=== PATIENT | female | born 1960 | race African-American/Black ===

== ENCOUNTER 2016-08-06 16:55 | Emergency (ER) | payer OTHER ==
[2016-08-06 17:03] VITALS: BP 155/95; PULSE 83; TEMP 98; BMI 34.5
--- NOTE | 2016-08-06 18:43 | PDOC ---
History of Present Illness <Nathalie Neal - Last Filed: 08/06/16 22:51> - General History Source: Patient Exam Limitations: No Limitations <Sadia Gaytan - Last Filed: 08/07/16 00:29> - General Chief Complaint: Blood Pressure Problem Stated Complaint: CHEST PAIN Time Seen by Provider: 08/06/16 17:54 - History of Present Illness Initial Comments: 08/06/16 19:59 The patient is a year 56 old female, with a significant past medical history of hypertension, who presents to the emergency department complaining of chest pain that began today and hour before arriving to the ED. The patient reports the recent passing of her sister, which triggered her crying earlier today. Since her episode of crying she reports chest pain, rib pain in the mid- axillary line bilaterally, and pain in the back of her neck. She describes her chest pain as a hot sensation. She rates her chest pain as 7.5/10. She rates her neck pain as a 9/10. She states that since arriving to the ED her chest pain has decreased. The patient denies any associated diaphoresis, palpitations , or shortness of breath. She denies any nausea vomiting, diarrhea, constipation , fever, chills, cough, headache, or dizziness. Allergies: None reported. Past Surgical History: Appendectomy Social History: Non-smoker. Denies alcohol or drug use. PCP: Dr. Everett King (Sadia Gaytan) Past History - Past Medical History HTN: Yes - Surgical History Appendectomy: Yes - Psycho/Social/Smoking Cessation Hx Anxiety: No Suicidal Ideation: No Smoking Status: Yes Smoking History: Current every day smoker Have you smoked in the past 12 months: Yes Number of Cigarettes Smoked Daily: 4 Information on smoking cessation initiated: Yes 'Breaking Loose' booklet given: 08/06/16 Hx Alcohol Use: No Drug/Substance Use Hx: No <Nathalie Neal - Last Filed: 08/06/16 22:51> <Sadia Gaytan - Last Filed: 08/07/16 00:29> - Past Medical History Allergies/Adverse Reactions: Allergies Allergy/AdvReac Type Severity Reaction Status Date / Time No Known Allergies Allergy Verified 08/06/16 16:58 Home Medications: Ambulatory Orders Amlodipine/Valsartan/Hcthiazid [Exforge Hct 10-160-25 mg Tab] 1 tab PO DAILY 12/25 Review of Systems <Nathalie Neal - Last Filed: 08/06/16 22:51> - Review of Systems Able to Perform ROS?: Yes <GaytanSadia barnhart - Last Filed: 08/07/16 00:29> - Review of Systems Comments:: 08/06/16 19:59 CONSTITUTIONAL: Absent: fever, no chills, no fatigue EYES: Absent: visual changes ENT: Absent: ear pain, no sore throat CARDIOVASCULAR: Present: Chest pain Absent: no palpitations RESPIRATORY: Absent: cough, no SOB GI: Absent: abdominal pain, no nausea, no vomiting, no constipation, no diarrhea GENITOURINARY: Absent: dysuria, no frequency, no hematuria MUSKULOSKELETAL: Present: +neck pain, +pain in midaxillary line bilaterally Absent:no arthralgia, no myalgia SKIN: Absent: rash NEURO: Absent: headache (Sadia Gaytan) *Physical Exam <Nathalie Neal - Last Filed: 08/06/16 22:51> <GaytanSadia barnhart - Last Filed: 08/07/16 00:29> - Vital Signs Last Vital Signs Temp Pulse Resp BP Pulse Ox 98.0 F 83 18 155/95 100 08/06/16 16:59 08/06/16 16:59 08/06/16 16:59 08/06/16 16:59 08/06/16 16:59 - Physical Exam Comments: 08/06/16 20:01 GENERAL: Well-appearing, well-nourished. No apparent distress. HEENT: Normocephalic, atraumatic. PERRL, EOM intact. CARDIOVASCULAR: Normal S1, S2. Regular rate and rhythm. PULMONARY: Clear to auscultation bilaterally. ABDOMEN: Soft, non-distended, non-tender. EXTREMITIES: Normal ROM in all four extremities. No gross deformities. Pain in chest/ miaxillary line and neck is non-reproducible to palpation. SKIN: Warm, dry. No rash NEUROLOGICAL: No focal neurological deficits. (Sadia Gaytan) Heart Score/ECG Review <Nathalie Neal - Last Filed: 08/06/16 22:51> <Sadia Gaytan - Last Filed: 08/07/16 00:29> - ECG Impressions Comment:: 08/07/16 00:28 Vent. Rate: 85 bpm IMPRESSION: Normal sinus rhythm. Possible left atrial enlargement. Left axis deviation. Left ventricular hypertrophy. Cannot rule out septal infarct. (Sadia Gaytan) ED Treatment Course - LABORATORY CBC & Chemistry Diagram: 08/06/16 19:00 08/06/16 19:00 <Nathalie Neal - Last Filed: 08/06/16 22:51> - LABORATORY CBC & Chemistry Diagram: 08/06/16 19:00 08/06/16 19:00 <Sadia Gaytan - Last Filed: 08/07/16 00:29> - ADDITIONAL ORDERS Additional order review: Laboratory Results 08/06/16 08/06/16 08/06/16 22:07 19:00 19:00 INR 1.07 Sodium 139 Potassium 4.3 Chloride 105 Carbon Dioxide 28 Anion Gap 6 L BUN 8 D Creatinine 0.7 D Creat Clearance w eGFR > 60 Random Glucose 106 Calcium 8.2 L Magnesium 2.1 Total Bilirubin 0.1 L D AST 19 ALT 31 Alkaline Phosphatase 87 Creatine Kinase 198 H 205 H CK-MB (CK-2) 2.719 Troponin I < 0.02 < 0.02 Total Protein 7.2 Albumin 3.6 08/06/16 19:00 RBC 4.57 MCV 85.2 MCHC 32.7 RDW 15.1 MPV 7.5 Neutrophils % 45.7 D Lymphocytes % 45.1 H D Monocytes % 7.8 Eosinophils % 0.9 D Basophils % 0.5 - RADIOLOGY Radiograph Interpretation: 08/07/16 00:26 EXAM: CXR INTERPRETED BY: Dr. Villa REVIEWED BY: Dr. Neal IMPRESSION: Normal Chest (Sadia Gaytan) - Medications Given in the ED: ED Medications Discontinued Medications Generic Name Dose Route Start Last Admin Trade Name Freq PRN Reason Stop Dose Admin Aspirin 162 mg 08/06/16 18:46 08/06/16 19:39 Asa - PO 08/06/16 18:47 162 mg ONCE ONE Administration Aspirin 162 mg 08/06/16 18:47 08/06/16 19:40 Asa - PO 08/06/16 18:48 Not Given ONCE ONE Medical Decision Making <Nathalie Neal - Last Filed: 08/06/16 22:51> <Sadia Gaytan - Last Filed: 08/07/16 00:29> - Medical Decision Making 08/06/16 20:04 56-year-old female with a history of hypertension who takes exforge presents to the emergency department because she has chest pain. She has been emotionally upset because her sister passed where from cancer about 8 days ago. It is atypical chest pain with pain in her mid axillary areas bilaterally Medical history hypertension Past surgical history is appendectomy in June 2015 EKG is normal sinus rhythm with left atrial enlargement. First cardiac enzyme is negative Impression-anxiety/musculoskeletal pain/atypical chest pain (Nathalie Neal) *DC/Admit/Observation/Transfer <Nathalie Neal - Last Filed: 08/06/16 22:51> <Sadia Gaytan - Last Filed: 08/07/16 00:29> Diagnosis at time of Disposition: Chest pain Qualifiers: Chest pain type: other chest pain Qualified Code(s): R07.89 - Other chest pain - Discharge Dispostion Disposition: HOME Condition at time of disposition: Stable - Referrals Referrals: Everett King MD [Primary Care Provider] - - Patient Instructions Printed Discharge Instructions: DI for Atypical Chest Pain Additional Instructions: please take your blood pressure medication as directly by your physician Follow up with your regular physician
[2016-08-06] MEDS ORDERED: ASPIRIN 81 MG CHEWABLE TABLETS PO ONE ×2 (18:46→18:47)
[2016-08-06] MEDS ORDERED: ASPIRIN 81 MG CHEWABLE TABLETS ONE (19:07)
[2016-08-06 19:17] LABS: BASOPHIL 0.5 % (0-2.0); EOSINOPHIL 0.9 % (0-4.5); MCH 27.9 pg (25.7-33.7); MCHC 32.7 g/dl (32.0-36.0); MEAN CELL VOLUME 85.2 fl (80-96); MEAN PLT VOLUME 7.5 fl (7.5-11.1); NEUTROPHILS 45.7 % (42.8-82.8); PLATELET COUNT 322 K/MM3 (134-434); RDW 15.1 % (11.6-15.6); WHITE BLOOD COUNT 8.7 K/mm3 (4.0-10.0)
[2016-08-06 19:54] LABS: ALBUMIN 3.6 g/dl (3.4-5.0); ANION GAP 6 (8-16); BILIRUBIN,TOTAL 0.1 mg/dL (0.2-1.0); CALCIUM 8.2 mg/dL (8.5-10.1); CO2 28 mmol/L (21-32); CREATININE 0.7 mg/dL (0.55-1.02); GLUCOSE,RANDOM 106 mg/dL (74-106); MAGNESIUM 2.1 mg/dL (1.8-2.4); SGOT/AST 19 U/L (15-37); SGPT/ALT 31 U/L (12-78); TOT PROT 7.2 g/dl (6.4-8.2)
[2016-08-06 19:57] LABS: ALK PHOS 87 U/L (45-117); TROPONIN I < 0.02 ng/ml (0.00-0.05)
[2016-08-06 19:59] LABS: INR 1.07 (0.82-1.09); PROTHROMBIN TIME (PATIENT) 11.8 SEC (9.98-11.88)
[2016-08-06 22:47] LABS: TROPONIN I < 0.02 ng/ml (0.00-0.05)
--- NOTE | 2016-08-08 14:19 | EKG ---
Test Reason : Blood Pressure : / mmHG Vent. Rate : 085 BPM Atrial Rate : 085 BPM P-R Int : 138 ms QRS Dur : 076 ms QT Int : 352 ms P-R-T Axes : 060 -36 034 degrees QTc Int : 418 ms NORMAL SINUS RHYTHM POSSIBLE LEFT ATRIAL ENLARGEMENT LEFT AXIS DEVIATION LEFT VENTRICULAR HYPERTROPHY CANNOT RULE OUT SEPTAL INFARCT , AGE UNDETERMINED ABNORMAL ECG NO PREVIOUS ECGS AVAILABLE Confirmed by HUNTER MCKINNEY MD ([id number]) on 08/08/2016 2:19:30 PM Referred By: Confirmed By:HUNTER MCKINNEY MD
== END 2016-08-06 23:12 | disposition home or self-care (01) ==
LOC: JER 16:55
DX: R07.89 Other chest pain (principal); I10 Essential (primary) hypertension; F17.210 Nicotine dependence, cigarettes, uncomplicated
CPT/HCPCS: 36415; 71010-TC; 80053; 82550; 82553; 83735; 84484; 85025; 85610; 93005; 93010; 99283-25

== ENCOUNTER 2016-08-18 20:07 | Emergency (ER) | payer OTHER ==
[2016-08-18 20:16] VITALS: BP 151/86; PULSE 71; TEMP 98; BMI 34.9
[2016-08-18] MEDS ORDERED: KETOROLAC TROMETHAMINE 60 MG/2 ML VIAL IM ONE (20:55)
[2016-08-18] MEDS ORDERED: KETOROLAC TROMETHAMINE 60 MG/2 ML VIAL ONE (20:57)
--- NOTE | 2016-08-18 21:01 | PDOC ---
History of Present Illness - General Chief Complaint: Injury Stated Complaint: INJURY Time Seen by Provider: 08/18/16 20:24 History Source: Patient Exam Limitations: No Limitations - History of Present Illness Initial Comments: 08/18/16 20:55 56-year-old female presents the ED with complaints of right upper cheek/eye bone pain after a metal fam fell out of the cabinet striking her on her glasses then her face. Patient states has applied ice since then but due to the pain she decided come to the ER. Patient denies visual changes, headache, neck pain, or dizziness presently. Timing/Duration: 1-3 hours Severity: mild Associated Symptoms: reports: denies symptoms Past History - Past Medical History Allergies/Adverse Reactions: Allergies Allergy/AdvReac Type Severity Reaction Status Date / Time No Known Allergies Allergy Verified 08/18/16 20:13 Home Medications: Ambulatory Orders Amlodipine/Valsartan/Hcthiazid [Exforge Hct 10-160-25 mg Tab] 1 tab PO DAILY 12/25 Non-Formulary 0 mg PO ASDIR 08/18/16 HTN: Yes Hypercholesterolemia: Yes - Surgical History Appendectomy: Yes - Psycho/Social/Smoking Cessation Hx Anxiety: No Suicidal Ideation: No Smoking Status: Yes Smoking History: Current every day smoker Have you smoked in the past 12 months: Yes Number of Cigarettes Smoked Daily: 4 Information on smoking cessation initiated: Yes 'Breaking Loose' booklet given: 08/18/16 Hx Alcohol Use: No Drug/Substance Use Hx: No Patient Lives Alone: No Lives with/in: spouse/SO Review of Systems - Review of Systems Able to Perform ROS?: Yes Constitutional: No: Symptoms Reported HEENTM: No: Symptoms Reported, Eye Pain, Blurred Vision, Tearing Respiratory: No: Symptoms reported Cardiac (ROS): No: Symptoms Reported ABD/GI: No: Symptoms Reported Musculoskeletal: No: Symptoms Reported Integumentary: Yes: Lumps (rt upper cheekbone) Neurological: No: Symptoms reported Endocrine: No: Symptoms Reported Hematologic/Lymphatic: No: Symptoms Reported *Physical Exam - Vital Signs Last Vital Signs Temp Pulse Resp BP Pulse Ox 98 F 71 18 151/86 98 08/18/16 20:14 08/18/16 20:14 08/18/16 20:14 08/18/16 20:14 08/18/16 20:14 - Physical Exam General Appearance: Yes: Nourished, Appropriately Dressed. No: Apparent Distress HEENT: positive: EOMI, YAJAIRA. negative: Pale Conjunctivae (no erythema and no edema) Neck: negative: Tender, Supple, Decreased range of motion Integumentary: positive: Other (noted small contusion to right orbital floor without crepitus or deformity. Minimal tenderness to touch) Neurologic: positive: Motor Strength 5/5 (ambulatory) Medical Decision Making - Medical Decision Making 08/18/16 20:59 Patient with injury to right eye after being struck with a metal tin at work. Patient with small contusion not concerning for acute findings. Patient recommended to apply ice and take NSAIDs. Patient given a dose an injection of Toradol *DC/Admit/Observation/Transfer Diagnosis at time of Disposition: Contusion of face Qualifiers: Encounter type: initial encounter Qualified Code(s): S00.83XA - Contusion of other part of head, initial encounter - Discharge Dispostion Disposition: HOME Condition at time of disposition: Good - Referrals Referrals: Everett King MD [Primary Care Provider] - - Patient Instructions Printed Discharge Instructions: DI for Contusion Additional Instructions: Apply ice to the affected area for the next 3 days as much as you can tolerate. May take Tylenol for discomfort or May take Motrin for discomfort.
== END 2016-08-18 21:06 | disposition home or self-care (01) ==
LOC: JERFT 20:07
PROC: 3E0233Z Introduction of Anti-inflammatory into Muscle, Percutaneous Approach (ICD-10-PCS; principal; 2016-08-18)
DX: S00.83XA Contusion of other part of head, initial encounter (principal); I10 Essential (primary) hypertension; E78.00 Pure hypercholesterolemia, unspecified; W20.8XXA Other cause of strike by thrown, projected or falling object, initial encounter; Y93.89 Activity, other specified; Y92.512 Supermarket, store or market as the place of occurrence of the external cause; Y99.0 Civilian activity done for income or pay
CPT/HCPCS: 99281-25

== ENCOUNTER 2016-09-05 17:15 | Emergency (ER) | payer OTHER ==
[2016-09-05] MEDS ORDERED: OXYCODONE/APAP 5/325MG COMBO TABLET PO ONE (17:20)
[2016-09-05 17:23] VITALS: BP 166/91; PULSE 72; TEMP 98; BMI 35.0
[2016-09-05] MEDS ORDERED: OXYCODONE/APAP 5/325MG COMBO TABLET ONE (18:11)
--- NOTE | 2016-09-05 20:53 | PDOC ---
History of Present Illness - General Chief Complaint: Back Pain Stated Complaint: BACK PAIN Time Seen by Provider: 09/05/16 17:32 History Source: Patient Exam Limitations: No Limitations - History of Present Illness Initial Comments: 09/05/16 20:47 CC pain to lower back post jerking movement to lower back x this pm at work; pain radiates down left leg with problems ambulating Occurred: reports: just prior to arrival Severity: reports: severe Pain Location: reports: back Method of Injury: Yes: fall Associated Symptoms (Fall): muscle spasms Past History - Past Medical History Allergies/Adverse Reactions: Allergies Allergy/AdvReac Type Severity Reaction Status Date / Time No Known Allergies Allergy Verified 09/05/16 17:18 Home Medications: Ambulatory Orders Amlodipine/Valsartan/Hcthiazid [Exforge Hct 10-160-25 mg Tab] 1 tab PO DAILY 12/25 Non-Formulary 0 mg PO ASDIR 08/18/16 HTN: Yes Hypercholesterolemia: Yes - Surgical History Appendectomy: Yes - Psycho/Social/Smoking Cessation Hx Anxiety: No Suicidal Ideation: No Smoking Status: Yes Smoking History: Current every day smoker Have you smoked in the past 12 months: Yes Number of Cigarettes Smoked Daily: 4 Information on smoking cessation initiated: Yes 'Breaking Loose' booklet given: 08/18/16 Hx Alcohol Use: No Drug/Substance Use Hx: No Review of Systems - Review of Systems ABD/GI: No: Symptoms Reported : No: Frequency, Incontinence Musculoskeletal: Yes: Back Pain, Muscle Weakness Neurological: No: Numbness, Paresthesia *Physical Exam - Vital Signs Last Vital Signs Temp Pulse Resp BP Pulse Ox 98 F 72 19 166/91 99 09/05/16 17:19 09/05/16 17:19 09/05/16 17:19 09/05/16 17:19 09/05/16 17:19 - Physical Exam General Appearance: Yes: Appropriately Dressed. No: Apparent Distress HEENT: positive: TMs Normal, Pharynx Normal Neck: positive: Supple. negative: Tender, Rigid Respiratory/Chest: positive: Lungs Clear Gastrointestinal/Abdominal: positive: Normal Bowel Sounds. negative: Organomegaly, Pulsatile Mass, Decreased BS, Rebound, Tenderness Rectal Exam: positive: deferred Neurologic: positive: Fully Oriented, Alert, Motor Strength 5/5, Other (no foot drop noted; SLRs= with root pain on left). negative: Sensory Deficit, Babinski Deep Tendon Reflexes: Ankle (L): 1+, Ankle (R): 1+, Knee (L): 1+, Knee (R): 1+ ED Treatment Course - Medications Given in the ED: ED Medications Discontinued Medications Generic Name Dose Route Start Last Admin Trade Name Rosanna PRN Reason Stop Dose Admin Oxycodone/Acetaminophen 2 combo 09/05/16 17:20 09/05/16 18:18 Percocet 5/325 - PO 09/05/16 17:21 2 combo ONCE ONE Administration Medical Decision Making - Medical Decision Making 09/05/16 20:51 ct scan l spine; notes bulging discs, no impingement ; will refer to local MD this week; feeling much better post percpcet ambulating with slight limp now *DC/Admit/Observation/Transfer Diagnosis at time of Disposition: Lower back pain Qualifiers: Chronicity: acute Back pain laterality: unspecified Sciatica presence: with sciatica Sciatica laterality: sciatica of left side Qualified Code(s): M54.42 - Lumbago with sciatica, left side - Discharge Dispostion Disposition: HOME Condition at time of disposition: Stable Admit: No - Patient Instructions Additional Instructions: please see local MD this week and before returning to work; further imaging may be needed; no driving after percocet and flexeril - Post Discharge Activity Work/School Note: Back to Work
== END 2016-09-05 20:58 | disposition home or self-care (01) ==
LOC: JERFT 17:15
DX: M54.42 Lumbago with sciatica, left side (principal); W01.198A Fall on same level from slipping, tripping and stumbling with subsequent striking against other object, initial encounter; Y93.89 Activity, other specified; Y92.512 Supermarket, store or market as the place of occurrence of the external cause; Y99.0 Civilian activity done for income or pay
CPT/HCPCS: 72131-TC; 99281-25

== ENCOUNTER 2017-03-01 23:44 | Emergency (ER) | payer OTHER ==
[2017-03-02 01:25] VITALS: BP 137/77; PULSE 74; TEMP 97.8; BMI 33.6
[2017-03-02] MEDS ORDERED: KETOROLAC TROMETHAMINE 60 MG/2 ML VIAL IM ONE (01:53)
[2017-03-02] MEDS ORDERED: diazePAM 5 MG TABLET PO ONE (01:53)
--- NOTE | 2017-03-02 02:01 | PDOC ---
History of Present Illness - General Chief Complaint: Back Pain Stated Complaint: BACK PAIN Time Seen by Provider: 03/02/17 00:59 - History of Present Illness Initial Comments: 03/02/17 01:49 CHIEF COMPLAINT: lower back pain HISTORY OF PRESENT ILLNESS: 56 yo with hx of HTN presents to ED with pain to R lower back s/p accident at work. Patient reports that she was accidentally struck on the top of her head by "metal garbage bins" at work; she ducked under quickly and snapped back up and since then she has had worsening pain to her R lower back. No recent travel or sick contacts. PAST MEDICAL HISTORY: Denies past medical history FAMILY HISTORY: Denies SOCIAL HISTORY: Lives at home with ____. Occupation: . Denies tobacco, alcohol, illicit drug use. SURGICAL HISTORY: Denies ALLERGIES: No known drug allergies REVIEW OF SYSTEMS General/Constitutional: Denies fever or chills. Denies weakness, weight change. HEENT: Denies change in vision. Denies ear pain or discharge. Denies sore throat. Cardiovascular: Denies chest pain or shortness of breath. Respiratory: Denies cough, wheezing, or hemoptysis. Gastrointestinal: Denies nausea, vomiting, diarrhea or constipation. Denies rectal bleeding. Genitourinary: Denies dysuria, frequency, or change in urination. Musculoskeletal: Denies joint or muscle swelling or pain. Denies neck or back pain. Skin and breasts: Denies rash or easy bruising. Neurologic: Denies headache, vertigo, loss of consciousness, or loss of sensation. Psychiatric: Denies depression or anxiety. Endocrine: Denies increased thirst. Denies abnormal weight change. Hematologic/Lymphatic: Denies anemia, easy bleeding, or history of blood clots. Allergic/Immunologic: Denies hives or skin allergy. Denies latex allergy. PHYSICAL EXAM General Appearance: Well-appearing, appropriately dressed. No apparent distress , no intoxication. HEENT: EOMI, PERRLA, normal ENT inspection, normal voice, TMs normal, pharynx normal. No conjunctival pallor. No photophobia, scleral icterus. Neck: Supple. Trachea midline. No tenderness, rigidity, carotid bruit, stridor , lymphadenopathy, or thyromegaly. Respiratory/Chest: Lungs CTAB. No shortness of breath, chest tenderness, respiratory distress, accessory muscle use. No crackles, rales, rhonchi, stridor , wheezing, dullness Cardiovascular: RRR. S1, S2. No JVD, murmur, bradycardia, tachycardia. Vascular Pulses: Dorsalis-Pedis (R): 2+, Dorsalis-Pedis (L): 2+ Gastrointestinal/Abdominal: Normal bowel sounds. Abdomen soft, non-distended. No tenderness or rebound tenderness. No organomegaly, pulsatile mass, guarding , hernia, hepatomegaly, splenomegaly. Lymphatic: No adenopathy, tenderness. Musculoskeletal/Extremities: Normal inspection. FROM of all extremities, normal capillary refill. Pelvis Stable. No CVA tenderness. No tenderness to extremities, pedal edema, swelling, erythema or deformity. Integumentary: Appropriate color, dry, warm. No cyanosis, erythema, jaundice or rash Neurologic: starch and prosize mixer II-XII intact. Fully oriented, alert. Appropriate mood/affect. Motor strength 5/5. No appreciable EOM palsy, facial droop or sensory deficit. Past History - Past Medical History Allergies/Adverse Reactions: Allergies Allergy/AdvReac Type Severity Reaction Status Date / Time No Known Allergies Allergy Verified 03/02/17 01:25 Home Medications: Ambulatory Orders Amlodipine Besylate [Norvasc -] 10 mg PO DAILY 03/02/17 Diazepam [Valium] 5 mg PO HS PRN #7 tablet MDD 1 03/02/17 Naproxen [Naprosyn -] 500 mg PO BID #14 tablet 03/02/17 HTN: Yes Hypercholesterolemia: Yes - Surgical History Appendectomy: Yes - Psycho/Social/Smoking Cessation Hx Anxiety: No Suicidal Ideation: No Smoking Status: Yes Smoking History: Current every day smoker Have you smoked in the past 12 months: No Number of Cigarettes Smoked Daily: 2 Information on smoking cessation initiated: No 'Breaking Loose' booklet given: 08/18/16 Hx Alcohol Use: No Drug/Substance Use Hx: No *Physical Exam - Vital Signs Last Vital Signs Temp Pulse Resp BP Pulse Ox 97.8 F 74 18 137/77 100 03/02/17 01:20 03/02/17 01:20 03/02/17 01:20 03/02/17 01:20 03/02/17 01:20 *DC/Admit/Observation/Transfer Diagnosis at time of Disposition: Lower back pain Qualifiers: Chronicity: acute Back pain laterality: right Sciatica presence: without sciatica Qualified Code(s): M54.5 - Low back pain - Discharge Dispostion Disposition: HOME Condition at time of disposition: Stable Admit: No - Prescriptions Prescriptions: Naproxen [Naprosyn -] 500 mg PO BID #14 tablet Diazepam [Valium] 5 mg PO HS PRN #7 tablet MDD 1 PRN Reason: Muscle Spasms - Referrals Referrals: Everett King MD [Primary Care Provider] - Deshawn Newton MD [Staff Physician] - - Patient Instructions Printed Discharge Instructions: DI for Low Back Pain Additional Instructions: Please take your medications as prescribed. Do NOT drive or operate machinery or drink alcohol while taking Valium. If your pain persists past 4-5 days, please follow up with orthopedics (referral provided). If you experience any loss of sensation to your legs, any loss of bowel or bladder function, memory loss, persistent vomiting, or any new or worsening symptoms, please return to the ER. - Post Discharge Activity Work/School Note: Back to Work
[2017-03-02] MEDS ORDERED: KETOROLAC TROMETHAMINE 60 MG/2 ML VIAL ONE (02:04)
[2017-03-02] MEDS ORDERED: diazePAM 5 MG TABLET ONE (02:04)
== END 2017-03-02 02:31 | disposition home or self-care (01) ==
LOC: JERFT 23:44
DX: M54.5 Low back pain (principal); W20.8XXA Other cause of strike by thrown, projected or falling object, initial encounter; Y93.89 Activity, other specified; Y92.512 Supermarket, store or market as the place of occurrence of the external cause; Y99.0 Civilian activity done for income or pay; I10 Essential (primary) hypertension; E78.00 Pure hypercholesterolemia, unspecified
CPT/HCPCS: 99282-25

== ENCOUNTER 2017-03-17 17:29 | Emergency (ER) | payer OTHER ==
[2017-03-17 17:43] VITALS: BP 143/74; PULSE 73; TEMP 98.2; BMI 31.8
--- NOTE | 2017-03-17 18:17 | PDOC ---
History of Present Illness <ÁngelNathaliecharisse Castañeda - Last Filed: 03/17/17 21:43> - History of Present Illness Initial Comments: 03/17/17 20:03 The patient is a 56 yo with a significant past medical history of hypertension who presents to emergency department for evaluation of persistent, constant achy headaches since her recent ED visit on 01/29/17. The patient states she has been taking Valium and Aleve for her pain with little relief. She presents today because her headache was severe. She denies visual changes. She denies numbness or tingling. The patients reports being hit on the top of her head a month ago by the metal lid of a garbage can at work. She states her symptoms started at that point and have been constant. She denies chest pain, shortness of breath, and dizziness. She denies fever, chills, nausea, vomit, diarrhea and constipation. She denies dysuria, frequency , urgency and hematuria. Allergies: NKDA PCP - Dr. Everett King <Danica Matta - Last Filed: 03/18/17 00:36> - General Chief Complaint: Headache Stated Complaint: HEADACHES/BACK PAIN Time Seen by Provider: 03/17/17 17:59 Past History - Past Medical History HTN: Yes Hypercholesterolemia: Yes - Surgical History Appendectomy: Yes - Psycho/Social/Smoking Cessation Hx Anxiety: No Suicidal Ideation: No Smoking Status: Yes Smoking History: Never smoked Have you smoked in the past 12 months: No Number of Cigarettes Smoked Daily: 2 Information on smoking cessation initiated: No 'Breaking Loose' booklet given: 08/18/16 Hx Alcohol Use: No Drug/Substance Use Hx: No Substance Use Type: None <ÁngelNathaliecharisse Castañeda - Last Filed: 03/17/17 21:43> <Danica Matta - Last Filed: 03/18/17 00:36> - Past Medical History Allergies/Adverse Reactions: Allergies Allergy/AdvReac Type Severity Reaction Status Date / Time No Known Allergies Allergy Verified 03/17/17 17:38 Home Medications: Ambulatory Orders Amlodipine Besylate [Norvasc -] 10 mg PO DAILY 03/02/17 Ibuprofen [Motrin -] 400 mg PO TID PRN 03/17/17 Review of Systems - Review of Systems Able to Perform ROS?: Yes Comments:: 03/17/17 20:04 CONSTITUTIONAL: Absent: fever, chills, diaphoresis, generalized weakness, malaise, loss of appetite HEENT: Absent: rhinorrhea, nasal congestion, throat pain, throat swelling, difficulty swallowing, mouth swelling, ear pain, eye pain, visual Changes CARDIOVASCULAR: Absent: chest pain, syncope, palpitations, irregular heart rate, lightheadedness , peripheral edema RESPIRATORY: Absent: cough, shortness of breath, dyspnea with exertion, orthopnea, wheezing, stridor, hemoptysis GASTROINTESTINAL: Absent: abdominal pain, abdominal distension, nausea, vomiting, diarrhea, constipation, melena, hematochezia GENITOURINARY: Absent: dysuria, frequency, urgency, hesitancy, hematuria, flank pain, genital pain MUSCULOSKELETAL: Absent: myalgia, arthralgia, joint swelling SKIN: Absent: rash, itching, pallor HEMATOLOGIC/IMMUNOLOGIC: Absent: easy bleeding, easy bruising, lymphadenopathy, frequent infections ENDOCRINE: Absent: unexplained weight gain, unexplained weight loss, heat intolerance, cold intolerance NEUROLOGIC: (+) headache and dizziness. Absent: focal weakness or paresthesias, unsteady gait, seizure, mental status changes, bladder or bowel incontinence PSYCHIATRIC: Absent: anxiety, depression, suicidal or homicidal ideation, hallucinations. <Danica Matta - Last Filed: 03/18/17 00:36> *Physical Exam - Vital Signs Last Vital Signs Temp Pulse Resp BP Pulse Ox 98.2 F 73 18 143/74 100 03/17/17 17:38 03/17/17 17:38 03/17/17 17:38 03/17/17 17:38 03/17/17 17:38 <Nathalie Neal - Last Filed: 03/17/17 21:43> - Vital Signs Last Vital Signs Temp Pulse Resp BP Pulse Ox 98.2 F 73 18 143/74 100 03/17/17 17:38 03/17/17 17:38 03/17/17 17:38 03/17/17 17:38 03/17/17 17:38 - Physical Exam Comments: 03/17/17 20:05 GENERAL: Well developed, well nourished. Awake and alert. No acute distress. HEENT: Normocephalic, atraumatic. PERRLA, EOMI. No conjunctival pallor. Sclera are non- icteric. Moist mucous membranes. Oropharynx is clear. NECK: Supple. Full ROM. No JVD. Carotid pulses 2+ and symmetric, without bruits. No thyromegaly. No lymphadenopathy. CARDIOVASCULAR: Regular rate and rhythm. No murmurs, rubs, or gallops. Distal pulses are 2+ and symmetric. PULMONARY: No evidence of respiratory distress. Lungs clear to auscultation bilaterally. No wheezing, rales or rhonchi. ABDOMINAL: Soft. Non-tender. Non-distended. No rebound or guarding. No organomegaly. Normoactive bowel sounds. MUSCULOSKELETAL Normal range of motion at all joints. No bony deformities or tenderness. No CVA tenderness. EXTREMITIES: No cyanosis. No clubbing. No edema. No calf tenderness. SKIN: Warm and dry. Normal capillary refill. No rashes. No jaundice. NEUROLOGICAL: Alert, awake, appropriate. Cranial nerves 2-12 intact. Normoreflexic in the upper and lower extremities. Normal speech. Toes are down-going bilaterally. Gait is normal without ataxia. PSYCHIATRIC: Cooperative. Good eye contact. Appropriate mood and affect. <Danica Matta - Last Filed: 03/18/17 00:36> Heart Score/ECG Review - ECG Intrepretation Comment:: 03/18/17 00:35 ECG was read by Dr. Neal at 20:00 Impression: Normal sinus rhythm Vent Rate: 63 bpm GA Interval: 158 ms QTc: 421 ms <Danica Matta - Last Filed: 03/18/17 00:36> ED Treatment Course - ADDITIONAL ORDERS Additional order review: Laboratory Results 03/17/17 18:50 POC Glucometer [id number] 03/17/17 18:50 POC Glucometer [id number] - Medications Given in the ED: ED Medications Discontinued Medications Generic Name Dose Route Start Last Admin Trade Name Freq PRN Reason Stop Dose Admin Ibuprofen 600 mg 03/17/17 19:15 03/17/17 19:25 Motrin - PO 03/17/17 19:16 600 mg ONCE ONE Administration <Danica Matta - Last Filed: 03/18/17 00:36> Medical Decision Making - Medical Decision Making 03/17/17 21:30 56-year-old female with headache and mild dizziness NIHSS stroke scale is 0. She has no gross focal neural deficits She has no diplopia, no field cuts on her visual field Fever, no nuchal rigidity, no nausea, vomiting CAT scan of the head is negative. There is no acute infarction, no acute bleed , mass lesion, no hydrocephalus and no sinusitis or skull fracture Impression Headache -if persists ,pt told to followup with Dr Latham <Nathalie Neal - Last Filed: 03/17/17 21:43> - Medical Decision Making 03/17/17 22:12 EXAM: CT HEAD without contrast was read by Jessi Beaver MD at 21:19 EST DATE/TIME: 2017-03-17 20:02:47 REASON FOR EXAM: Severe persistent headache. FINDINGS: Negative unenhanced head CT examination. There is no CT evidence of acute cortical territorial infarction, bleed, mass lesion, mass effect, hydrocephalus or abnormal extra-axial collection.No acute sinusitis or mastoiditis is identified. No acute skull fracture or calvarial lesion is noted. <Danica Matta - Last Filed: 03/18/17 00:36> *DC/Admit/Observation/Transfer <Nathalie Neal - Last Filed: 03/17/17 21:43> - Attestations Scribe Attestion: 03/17/17 20:05 Documentation prepared by Danica Matta, acting as medical insurance claims specialist for Nathalie Neal MD <Danica Matta - Last Filed: 03/18/17 00:36> Diagnosis at time of Disposition: Headache Qualifiers: Headache type: tension-type Headache chronicity pattern: unspecified pattern Intractability: not intractable Qualified Code(s): G44.209 - Tension-type headache, unspecified, not intractable - Discharge Dispostion Disposition: HOME Condition at time of disposition: Stable - Referrals Referrals: Everett King MD [Primary Care Provider] - Cesar Latham MD [Staff Physician] - - Patient Instructions Printed Discharge Instructions: DI for Headache Additional Instructions: please follow up with Dr Latham if your headaches persist Take motrin or Excedrine headache for pain as needed
[2017-03-17] MEDS ORDERED: IBUPROFEN 600 MG TABLET (FP) PO ONE ×2 (19:15→19:27)
--- NOTE | 2017-03-18 17:44 | EKG ---
Test Reason : Blood Pressure : / mmHG Vent. Rate : 063 BPM Atrial Rate : 063 BPM P-R Int : 158 ms QRS Dur : 090 ms QT Int : 412 ms P-R-T Axes : 059 -20 025 degrees QTc Int : 421 ms NORMAL SINUS RHYTHM NORMAL ECG WHEN COMPARED WITH ECG OF 06-AUG-2016 17:04, MINIMAL CRITERIA FOR SEPTAL INFARCT ARE NO LONGER PRESENT CLINICAL CORRELATION IS RECOMMENDED Confirmed by OLGA PARR MD ([id number]) on 03/18/2017 5:43:59 PM Referred By: Confirmed By:OLGA PARR MD
== END 2017-03-17 22:03 | disposition home or self-care (01) ==
LOC: JER 17:29
DX: G44.209 Tension-type headache, unspecified, not intractable (principal); I10 Essential (primary) hypertension; E78.00 Pure hypercholesterolemia, unspecified; Z72.0 Tobacco use
CPT/HCPCS: 70450-TC; 93005; 93010; 99282-25

== ENCOUNTER 2017-07-24 11:24 | Emergency (ER) | payer OTHER ==
[2017-07-24 11:28] VITALS: TEMP 98.7; BMI 33.6
--- NOTE | 2017-07-24 12:14 | PDOC ---
History of Present Illness <Jabari Parra - Last Filed: 07/24/17 15:06> - History of Present Illness Initial Comments: 07/24/17 12:14 Ms. Feng is a 57 yo female w/ pmh of HTN who presents complaining of 1 week of nasal congestions with minor cough and pressure to her sinuses, diarrhea 4 days ago the lasted 1 day and resolved, diarrhea today that she reports is loose stool only, and chest tightness. She reports she thinks she may have gotten food poisoning and that she had subjective fevers and chills last night. She also complains of intermittent nausea without vomiting. The patient denies shortness of breath and dizziness. Denies vomit and constipation. Denies dysuria, frequency, urgency and hematuria. Allergies: NKDA <Warren Colvin - Last Filed: 07/24/17 15:36> - General Chief Complaint: Pain Stated Complaint: CHEST PAIN/DIARRHEA, CHILLS Time Seen by Provider: 07/24/17 11:26 Past History <Jabari Parra - Last Filed: 07/24/17 15:06> - Past Medical History COPD: No HTN: Yes Hypercholesterolemia: Yes - Surgical History Appendectomy: Yes - Suicide/Smoking/Psychosocial Hx Smoking Status: Yes Smoking History: Current every day smoker Have you smoked in the past 12 months: No Number of Cigarettes Smoked Daily: 5 Information on smoking cessation initiated: Yes 'Breaking Loose' booklet given: 07/24/17 Hx Alcohol Use: No Drug/Substance Use Hx: No Substance Use Type: None <Warren Colvin - Last Filed: 07/24/17 15:36> - Past Medical History Allergies/Adverse Reactions: Allergies Allergy/AdvReac Type Severity Reaction Status Date / Time No Known Allergies Allergy Verified 07/24/17 11:28 Home Medications: Ambulatory Orders Amlodipine Besylate [Norvasc -] 10 mg PO DAILY 03/02/17 Ibuprofen [Motrin -] 400 mg PO TID PRN 03/17/17 Review of Systems - Review of Systems Comments:: 07/24/17 13:11 GENERAL/CONSTITUTIONAL: +Subjective fever with chills. No weakness. HEAD, EYES, EARS, NOSE AND THROAT: No change in vision. No ear pain or discharge. No sore throat. CARDIOVASCULAR: +Minor chest tightness without shortness of breath RESPIRATORY: +Minor cough, wheezing, or hemoptysis. GASTROINTESTINAL: Some nausea with 3-4 episodes of diarrhea today. No vomiting or constipation. GENITOURINARY: No dysuria, frequency, or change in urination. MUSCULOSKELETAL: No joint or muscle swelling or pain. No neck or back pain. SKIN: No rash NEUROLOGIC: No headache, vertigo, loss of consciousness, or change in strength/ sensation. ENDOCRINE: No increased thirst. No abnormal weight change HEMATOLOGIC/LYMPHATIC: No anemia, easy bleeding, or history of blood clots. ALLERGIC/IMMUNOLOGIC: No hives or skin allergy. <Warren Colvin - Last Filed: 07/24/17 15:36> *Physical Exam - Vital Signs Last Vital Signs Temp Pulse Resp BP Pulse Ox 98.7 F 74 18 143/80 100 07/24/17 11:26 07/24/17 11:26 07/24/17 11:26 07/24/17 11:26 07/24/17 11:26 <Jabari Parra - Last Filed: 07/24/17 15:06> - Vital Signs Last Vital Signs Temp Pulse Resp BP Pulse Ox 98.7 F 74 18 143/80 100 07/24/17 11:26 07/24/17 11:26 07/24/17 11:26 07/24/17 11:26 07/24/17 11:26 - Physical Exam Comments: 07/24/17 13:13 GENERAL: Awake, alert, and fully oriented, in no acute distress HEAD: No signs of trauma, normocephalic, atraumatic EYES: PERRLA, EOMI, sclera anicteric, conjunctiva clear ENT: Auricles normal inspection, hearing grossly normal, nares patent, oropharynx clear without exudates. Moist mucosa NECK: Normal ROM, supple, no lymphadenopathy, JVD, or masses LUNGS: +Reproducible TTP midline on sternum. No distress, speaks full sentences , clear to auscultation bilaterally HEART: Regular rate and rhythm, normal S1 and S2, no murmurs, rubs or gallops, peripheral pulses normal and equal bilaterally. ABDOMEN: Soft, nontender, normoactive bowel sounds. No guarding, no rebound. No masses EXTREMITIES: Normal inspection, Normal range of motion, no edema. No clubbing or cyanosis. NEUROLOGICAL: Cranial nerves II through XII grossly intact. Normal speech, normal gait, no focal sensorimotor deficits SKIN: Warm, Dry, normal turgor, no rashes or lesions noted. <Warren Colvin - Last Filed: 07/24/17 15:36> ED Treatment Course - LABORATORY CBC & Chemistry Diagram: 07/24/17 12:38 07/24/17 12:38 - ADDITIONAL ORDERS Additional order review: Laboratory Results 07/24/17 07/24/17 12:47 12:38 Sodium 137 Potassium 4.2 Chloride 105 Carbon Dioxide 27 Anion Gap 5 L BUN 8 Creatinine 0.6 Creat Clearance w eGFR > 60 Random Glucose 110 H Calcium 8.2 L Total Bilirubin 0.2 D AST 23 D ALT 46 D Alkaline Phosphatase 93 Creatine Kinase 150 Creatine Kinase Index 1.1 CK-MB (CK-2) 1.797 Troponin I < 0.02 Total Protein 7.0 Albumin 3.3 L Urine Color Yellow Urine Appearance Clear Urine pH 6.0 D Ur Specific Russell 1.019 Urine Protein Negative Urine Glucose (UA) Negative Urine Ketones Negative Urine Blood 2+ H Urine Nitrite Negative Urine Bilirubin Negative Urine Urobilinogen 4.0 e.u/dl H Ur Leukocyte Esterase Negative Urine WBC (Auto) 1 Urine RBC (Auto) 89 Ur Epithelial Cells Few 07/24/17 12:38 RBC 4.58 MCV 85.8 MCHC 31.9 L RDW 15.4 MPV 7.2 L Neutrophils % 49.6 Lymphocytes % 38.9 Monocytes % 9.8 Eosinophils % 1.2 Basophils % 0.5 - Medications Given in the ED: ED Medications Discontinued Medications Generic Name Dose Route Start Last Admin Trade Name Rosanna PRN Reason Stop Dose Admin Famotidine 20 mg in 12 mls @ 144 mls/hr 07/24/17 12:30 07/24/17 12:45 Pepcid 20 Mg/12 Ml Push IVPUSH 07/24/17 12:34 144 mls/hr ONCE ONE Administration Sodium Chloride 1,000 mls @ 1,000 mls/hr 07/24/17 12:24 07/24/17 12:45 Normal Saline - IV 07/24/17 13:23 1,000 mls/hr ASDIR STA Administration Ketorolac Tromethamine 15 mg 07/24/17 13:07 07/24/17 13:15 Toradol Injection - IVPUSH 07/24/17 13:08 15 mg ONCE ONE Administration <Jabari Parra - Last Filed: 07/24/17 15:06> - LABORATORY CBC & Chemistry Diagram: 07/24/17 12:38 07/24/17 12:38 <Warren Colvin - Last Filed: 07/24/17 15:36> Medical Decision Making - Medical Decision Making 07/24/17 15:34 Ms. Feng is a 57 yo female w/ pmh as described who presents w/ URI. Patient noted to have blood in urine - discussed with patient who verbalized understanding and agreement of need to f/u w/ urology. Provided urology f/u information. Discharging to home. <DiegorichmondWarren - Last Filed: 07/24/17 15:36> *DC/Admit/Observation/Transfer <Jabari Parra - Last Filed: 07/24/17 15:06> <Warren Colvin - Last Filed: 07/24/17 15:36> Diagnosis at time of Disposition: URI (upper respiratory infection) Qualifiers: URI type: unspecified URI Qualified Code(s): J06.9 - Acute upper respiratory infection, unspecified - Discharge Dispostion Disposition: HOME - Referrals Referrals: Everett King MD [Primary Care Provider] - Ángel Carrera MD [Staff Physician] - - Patient Instructions Printed Discharge Instructions: DI for Viral Syndrome Additional Instructions: You had blood in your urine today. You need to follow up with a urologist to have this further evaluated, as it may be a sign of cancer. If you experience any chest pain, shortness of breath, or any other concerning symptoms, return to the ER immediately. Otherwise follow up with your primary doctor within 1 week. - Post Discharge Activity
[2017-07-24] MEDS ORDERED: SODIUM CHLORIDE 1,000 ML IV STA (12:24)
[2017-07-24] MEDS ORDERED: FAMOTIDINE IV 20 MG/12 ML VIAL IVPUSH ONE (12:30)
[2017-07-24] MEDS ORDERED: FAMOTIDINE 20 MG/50 ML IVPB 20 MG/50 ML MG IVPB ONE (12:41)
--- NOTE | 2017-07-24 12:42 | EKG ---
Test Reason : Blood Pressure : / mmHG Vent. Rate : 074 BPM Atrial Rate : 074 BPM P-R Int : 140 ms QRS Dur : 080 ms QT Int : 394 ms P-R-T Axes : 067 -28 029 degrees QTc Int : 437 ms NORMAL SINUS RHYTHM NORMAL ECG WHEN COMPARED WITH ECG OF 17-MAR-2017 20:00, NO SIGNIFICANT CHANGE WAS FOUND Confirmed by HUNTER MCKINNEY MD ([id number]) on 07/24/2017 12:42:41 PM Referred By: Confirmed By:HUNTER MCKINNEY MD
[2017-07-24 12:47] LABS: BASO % 0.5 % (0-2.0); EOS % 1.2 % (0-4.5); HEMATOCRIT 39.3 % (32.4-45.2); HEMOGLOBIN 12.5 GM/dL (10.7-15.3); LYMPH % 38.9 % (8-40); MCH 27.4 pg (25.7-33.7); MCHC 31.9 g/dl (32.0-36.0); MEAN CELL VOLUME 85.8 fl (80-96); MEAN PLT VOLUME 7.2 fl (7.5-11.1); MONO % 9.8 % (3.8-10.2); NEUT % 49.6 % (42.8-82.8); PLATELET COUNT 338 K/MM3 (134-434); RBC 4.58 M/mm3 (3.60-5.2); RDW 15.4 % (11.6-15.6); WHITE BLOOD COUNT 7.4 K/mm3 (4.0-10.0)
[2017-07-24 13:05] LABS: URINE APPEARANCE CLEAR; URINE BILIRUBIN NEGATIVE (NEGATIVE); URINE BLOOD 2+ (NEGATIVE); URINE COLOR YELLOW; URINE GLUCOSE (UA) NEGATIVE (NEGATIVE); URINE KETONE NEGATIVE (NEGATIVE); URINE LEUK ESTERASE NEGATIVE (NEGATIVE); URINE NITRITE NEGATIVE (NEGATIVE); URINE PROTEIN NEGATIVE (NEGATIVE); URINE UROBILINOGEN 4.0 E.U/dl mg/dL (0.2-1.0)
[2017-07-24] MEDS ORDERED: KETOROLAC TROMETHAMINE 15 MG/ML VIAL IVPUSH ONE (13:07)
[2017-07-24 13:08] LABS: EPI CELLS FEW /HPF (FEW)
[2017-07-24 13:09] LABS: ALBUMIN 3.3 g/dl (3.4-5.0); ANION GAP 5 (8-16); BLOOD UREA NITROGEN 8 mg/dL (7-18); CALCIUM 8.2 mg/dL (8.5-10.1); CHLORIDE 105 mmol/L (98-107); CO2 27 mmol/L (21-32); GLUCOSE,RANDOM 110 mg/dL (74-106); POTASSIUM 4.2 mmol/L (3.5-5.1); SODIUM 137 mmol/L (136-145)
[2017-07-24] MEDS ORDERED: KETOROLAC TROMETHAMINE 15 MG/ML VIAL ONE (13:13)
[2017-07-24 13:15] LABS: ALK PHOS 93 U/L (45-117); BILIRUBIN,TOTAL 0.2 mg/dL (0.2-1.0); CREATININE 0.6 mg/dL (0.55-1.02); SGOT/AST 23 U/L (15-37); SGPT/ALT 46 U/L (12-78)
--- NOTE | 2017-07-24 13:21 | PDOC ---
Attending Attestation - Resident Resident Name: Warren Colvin - ED Attending Attestation I have performed the following: I have examined & evaluated the patient, The case was reviewed & discussed with the resident, I agree w/resident's findings & plan, Exceptions are as noted - HPI HPI: 07/24/17 13:17 "The patient is a 57 year old female, with a significant past medical history of hypertension, who presents to the emergency department with one week of nasal congestion, dry cough, and generalized body aches. Endorses chest tightness associated only with coughing. Denies SOB. Reports some diarrhea 2 days ago without N/V. Denies abdominal pain. Denies dysuria. PCP: Dr. Everett King " - Physicial Exam PE: 07/24/17 13:18 "GENERAL: Awake, alert, and fully oriented, in no acute distress HEAD: No signs of trauma EYES: PERRLA, EOMI, sclera anicteric, conjunctiva clear ENT: Auricles normal inspection, hearing grossly normal, nares patent, oropharynx clear without exudates. Moist mucosa NECK: Nontender, no stepoffs, Normal ROM, supple, no lymphadenopathy, JVD, or masses LUNGS: Breath sounds equal, clear to auscultation bilaterally. No wheezes, and no crackles HEART: Regular rate and rhythm, normal S1 and S2, no murmurs, rubs or gallops ABDOMEN: Soft, nontender, normoactive bowel sounds. No guarding, no rebound. No masses EXTREMITIES: Normal range of motion, no edema. No clubbing or cyanosis. No cords, erythema, or tenderness NEUROLOGICAL: Cranial nerves II through XII intact. 5/5 strength and sensation in all extremities, Normal speech, normal gait SKIN: Warm, Dry, normal turgor, no rashes or lesions noted. " - Medical Decision Making 07/24/17 13:18 57 F with bodyaches, congestion, cough. Likely viral syndrome. Pt with stable vitals, afebrile in ER. Normal exam. Pt's chest tightness associated only with coughing. Will obtain EKG and trop to r/o ACS. Pt with no clinical signs / symptoms of DVT. - Labs, UA, CXR - Trop, EKG - IVF, toradol Labs, CXR unremarkable. Pt well appearing, vitals normal, clinically stable for DC. Pt informed of blood in urine and understands need to f/u with urology. I discussed the physical exam findings, ancillary test results and final diagnoses with the patient. I answered all of the patient's questions. The patient was satisfied with the care received and felt comfortable with the discharge plan and treatment plan. The patient agrees to follow up with the primary care physician within 24-72 hours.
[2017-07-24 16:49] VITALS: BP 145/67; PULSE 73
--- NOTE | 2017-07-30 13:39 | EKG ---
Test Reason : Blood Pressure : / mmHG Vent. Rate : 069 BPM Atrial Rate : 069 BPM P-R Int : 144 ms QRS Dur : 076 ms QT Int : 404 ms P-R-T Axes : 064 -25 017 degrees QTc Int : 432 ms NORMAL SINUS RHYTHM SEPTAL INFARCT , AGE UNDETERMINED ABNORMAL ECG WHEN COMPARED WITH ECG OF 24-JUL-2017 11:31, NO SIGNIFICANT CHANGE WAS FOUND Confirmed by BERKLEY MCNEILL MD ([id number]) on 07/30/2017 1:39:40 PM Referred By: Confirmed By:BERKLEY MCNEILL MD
== END 2017-07-24 16:49 | disposition home or self-care (01) ==
LOC: JER 11:24
PROC: 3E0337Z Introduction of Electrolytic and Water Balance Substance into Peripheral Vein, Percutaneous Approach (ICD-10-PCS; principal; 2017-07-24)
PROC: 3E033GC Introduction of Other Therapeutic Substance into Peripheral Vein, Percutaneous Approach (ICD-10-PCS; 2017-07-24)
PROC: 3E033GC Introduction of Other Therapeutic Substance into Peripheral Vein, Percutaneous Approach (ICD-10-PCS; 2017-07-24)
DX: J06.9 Acute upper respiratory infection, unspecified (principal)
CPT/HCPCS: 36415; 71046-TC; 80053; 81003; 81015; 82550; 82553; 84484; 85025; 93005; 93010; 99283-25

== ENCOUNTER 2020-04-21 16:16 | Emergency (ER) | payer OTHER ==
[2020-04-21 16:24] VITALS: BP 182/86; PULSE 73; TEMP 98.5; BMI 35.4
[2020-04-21] MEDS ORDERED: KETOROLAC TROMETHAMINE 60 MG/2 ML VIAL IM ONE (16:41)
[2020-04-21] MEDS ORDERED: CYCLOBENZAPRINE HCL 10 MG TABLET (FP) PO ONE (16:41)
[2020-04-21] MEDS ORDERED: LORATADINE 10 MG TABLET PO ONE (16:41)
--- NOTE | 2020-04-21 16:44 | PDOC ---
History of Present Illness - General Chief Complaint: Back Pain Stated Complaint: BACK PAIN Time Seen by Provider: 04/21/20 16:31 History Source: Patient Exam Limitations: No Limitations - History of Present Illness Initial Comments: 04/21/20 17:32 60-year-old female presents to ED with complaints of left-sided back pain for the past few days worsened with movement. Patient states works at [employer] and is frequently picking up boxes of supplies. Patient also states is been sleeping on her left side which has aggravated her pain more. Patient states is taken nothing for the pain and denies any weakness to the lower extremity, incontinence, or saddle anesthesia. Patient also mentioning she has nasal congestion with sore throat along with right ear pain for the past 2 days. No meds taken. Severity: reports: mild Pain Location: reports: back Associated Symptoms (Fall): denies symptoms Past History - Travel History Traveled outside of the country in the last 30 days: No Close contact w/someone who was outside of country & ill: No - Medical History Allergies/Adverse Reactions: Allergies Allergy/AdvReac Type Severity Reaction Status Date / Time No Known Allergies Allergy Verified 04/21/20 16:18 Home Medications: Ambulatory Orders Amlodipine Besylate [Norvasc -] 10 mg PO DAILY 03/02/17 Ibuprofen [Motrin -] 400 mg PO TID PRN 03/17/17 Cyclobenzaprine HCl [Flexeril -] 5 mg PO TID PRN #12 tablet 04/21/20 Ibuprofen [Motrin -] 600 mg PO TID PRN #21 tablet 04/21/20 Loratadine [Claritin] 10 mg PO DAILY #7 tablet 04/21/20 COPD: No HTN: Yes Hypercholesterolemia: Yes - Surgical History Appendectomy: Yes - Psycho-Social/Smoking History Patient Lives Alone: No Lives with/in: spouse/SO Smoking Status: Yes Smoking History: Current every day smoker Have you smoked in the past 12 months: Yes Number of Cigarettes Smoked Daily: 10 Information on smoking cessation initiated: Yes 'Breaking Loose' booklet given: 07/24/17 - Substance Abuse Hx (Audit-C & DAST Scrn) How often the patient has a drink containing alcohol: Never Score: In Men: 4 or > Positive; In Women: 3 or > Positive: 0 Screen Result (Pos requires Nsg. Audit-10AR): Negative In the last yr the pt used illegal drug/Rx for NonMed reason: No Score: Yes response is considered Positive: 0 Screen Result (Positive result requires Nsg. DAST-10): Negative Review of Systems - Review of Systems Able to Perform ROS?: No Is the patient limited Iranian proficient: No Constitutional: No: Symptoms Reported HEENTM: Yes: Ear Pain, Nose Congestion, Throat Pain Respiratory: No: Symptoms reported Cardiac (ROS): No: Symptoms Reported ABD/GI: No: Symptoms Reported : No: Symptoms Reported Musculoskeletal: Yes: Back Pain Integumentary: No: Symptoms Reported Neurological: No: Symptoms reported *Physical Exam - Vital Signs Last Vital Signs Temp Pulse Resp BP Pulse Ox 98.5 F 73 18 182/86 H 100 04/21/20 16:18 04/21/20 16:18 04/21/20 16:18 04/21/20 16:18 04/21/20 16:18 - Physical Exam General Appearance: Yes: Nourished, Appropriately Dressed. No: Apparent Distress HEENT: positive: TMs Normal, Pharynx Normal, Nasal Congestion. negative: Pale Conjunctivae, Tonsillar Erythema, Rhinorrhea, Sinus Tenderness Neck: positive: Supple. negative: Decreased range of motion Respiratory/Chest: positive: Lungs Clear, Normal Breath Sounds. negative: Respiratory Distress, Accessory Muscle Use Cardiovascular: positive: Regular Rhythm, Regular Rate. negative: Murmur Gastrointestinal/Abdominal: positive: Soft. negative: Tenderness Musculoskeletal: negative: Vertebral Tenderness (Noted left trapezius tenderness) Extremity: positive: Normal Inspection Integumentary: positive: Normal Color, Warm, Moist Neurologic: positive: Motor Strength 5/5 Medical Decision Making - Medical Decision Making 04/21/20 17:36 Chief complaint: Upper back pain worsened with movement over the past few days. Patient also with URI complaints. Exam: Patient on exam had left trapezius tenderness with noted nasal congestion. Plan: Toradol IM, Flexeril, and Claritin ordered. Discharge home with the same. Discharge - Discharge Information Problems reviewed: Yes Clinical Impression/Diagnosis: Back pain Condition: Good Disposition: HOME - Additional Discharge Information Prescriptions: Loratadine [Claritin] 10 mg PO DAILY #7 tablet Cyclobenzaprine HCl [Flexeril -] 5 mg PO TID PRN #12 tablet PRN Reason: Back Pain Ibuprofen [Motrin -] 600 mg PO TID PRN #21 tablet PRN Reason: Pain - Follow up/Referral Referrals: Everett King MD [Primary Care Provider] - - Patient Discharge Instructions Patient Printed Discharge Instructions: DI for Back Strain or Sprain Additional Instructions: Please avoid movements that trigger discomfort Take medication for discomfort. - Post Discharge Activity Work/Back to School Note: Back to Work
[2020-04-21] MEDS ORDERED: CYCLOBENZAPRINE HCL 10 MG TABLET (FP) ONE (16:47)
[2020-04-21] MEDS ORDERED: LORATADINE 10 MG TABLET ONE (16:48)
[2020-04-21] MEDS ORDERED: KETOROLAC TROMETHAMINE 30 MG/1 ML VIAL ONE (16:48)
--- OUTSIDE RECORDS SUMMARY | 2020-04-21 16:57 | XMS ---
:1960 Author Organization [facility] Care Team Providers Name Role Phone Richard Thomas MD Unavailable Unavailable Billie Soares MD Unavailable Unavailable Re-disclosure Warning The records that you are about to access may contain information from federally- assisted alcohol or drug abuse programs. If such information is present, then the following federally mandated warning applies: This information has been disclosed to you from records protected by federal confidentiality rules (42 CFR part 2). The federal rules prohibit you from making any further disclosure of this information unless further disclosure is expressly permitted by the written consent of the person to whom it pertains or as otherwise permitted by 42 CFR part 2. A general authorization for the release of medical or other information is NOT sufficient for this purpose. The Federal rules restrict any use of the information to criminally investigate or prosecute any alcohol or drug abuse patient.The records that you are about to access may contain highly sensitive health information, the redisclosure of which is protected by Article 27-F of the [facility] Public Health law. If you continue you may haveaccess to information: Regarding HIV / AIDS; Provided by facilities licensed or operated by the [facility] Office of Mental Health; or Provided by the [facility] Office for People With Developmental Disabilities. If such information is present, then the following [facility] mandated warning applies: This information has been disclosed to you from confidential records which are protected by state law. State law prohibits you from making any further disclosure of this information without the specific written consent of the person to whom it pertains, or as otherwise permitted by law. Any unauthorized further disclosure in violation of state law may result in a fine or retirement sentence or both. A general authorization for the release of medical or other information is NOT sufficient authorization for further disclosure. Allergies and Adverse Reactions Type Description Substance Reaction Status Data Source(s ) Drug allergy No Known Allergies No Known Allergies unknown [facility] Encounters Encounter Providers Location Date Indications Data Source(s ) Inpatient Attender: 09/07/2019 [facility] [place] Billie Soares 01:00:00 PM Hospit al MDAttender: Richard EST - William 09/08/2019 MDAdmitter: 10:49:00 AM Billie URBANO MD HYPERTENSION URGENCY Patient discharged. Functional Status Medications Medication Brand Start Product Dose Route Administrative Pharmacy [facility] Indications Reaction Description Data Name Date Form Instructions Instructions Source(s) Amlodipine Amlodi 09/08/ TABLET 10 mg ORAL active [facility] 10 MG Oral pine 2020 [place] Tablet Besyla 08:49: Hospital Amlodipine te 00 AM Besylate EST Losartan Losart 09/08/ TABLET 50 mg ORAL active Wh ite Potassium an 2020 [place] 50 MG Oral Potass 08:49: Hospi crissy Tablet ium 00 AM [Cozaar] EST Albuterol 09/08/ AEROSOL, 1 RESPIR active [facility] 2020 [facility] [place] 08:49: (INHAL Hospital 00 AM ATION) EST Insurance Providers Payer name Policy type Policy ID Covered Covered republican's Policy P gladys / Coverage republican ID relationship to [employer] ormation type [employer] MVP MEDICAID [id number] [facility] [id number] PT [id number] [address] [facility] MEDICAID [id number] PT [id number] Problems, Conditions, and Diagnoses Code Display Name Description Problem Type Effective Dates Data Source(s) I10 Essential (primary) I10 Diagnosis 09/07/2019 [place] hypertension 04:45:00 PM EST Hospita l J44.9 Chronic obstructive J44.9 Diagnosis 09/07/2019 [place] pulmonary disease, 04:45:00 PM EST H ospital unspecified E83.51 Hypocalcemia E83.51 Diagnosis 09/07/2019 [place] 04:45:00 PM EST Hospital Z91.14 Patient's other Z91.14 Diagnosis 09/07/2019 [place] [facility] noncompliance with 04:45:00 PM EST H ospital medication regimen F17.200 Nicotine dependence, F17.200 Diagnosis 09/07/2019 [facility] [place] unspecified, 04:45:00 PM EST Hospita l uncomplicated I16.0 Hypertensive urgency I16.0 Diagnosis 09/07/2019 [facility] [place] 04:45:00 PM EST Hospital Surgeries/Procedures Procedure Description Date Indications Data Source(s) Nebulizer therapy (procedure) 09/07/2019 [place] 12:00:00 AM Hospital EST Plain chest X-ray (procedure) 09/07/2019 [place] 12:00:00 AM Hospital EST Electrocardiographic procedure 09/07/2019 [place] (procedure) 12:00:00 AM Hospital EST Electrocardiographic procedure 09/07/2019 [place] (procedure) 12:00:00 AM Hospital EST Results ID Date Data Source [id number] 09/08/2019 06:47:00 AM [facility] THIS TEST RESULT HAS BEEN CONFIRMED BY R EPEAT ANALYSIS. Name Value Range Interpretation Description Data Sup porting Code Source(s) Document(s ) Calcium 9.1 mg/dL [place] [Mass/volume Hospital ] in Serum or Plasma ID Date Data Source [id number] 09/08/2019 06:47:00 AM [facility] UNITS ARE IN ml/min/1.73m2.IF PATIENT IS -MAURITANIAN, MULTIPLY REPORTED RESULT BY 1.21. Name Value Range Interpretation Description Data Sup porting Code Source(s) Document(s ) Glomerular > 60 [place] filtration mL/min Hospital rate/1.73 sq M.predicted [Volume Rate/Area] in Serum or Plasma by Creatinine-bas ed formula (MDRD) ID Date Data Source [id number] 09/08/2019 06:47:00 AM [facility] Name Value Range Interpretation Code Description Data Dorothy rce(s) Supporting Document(s ) Urea 15.7 [place] nitrogen/Cre Hospital atinine [Mass Ratio] in Serum or Plasma ID Date Data Source [id number] 09/08/2019 06:47:00 AM [facility] Name Value Range Interpretation Description Data Sup porting Code Source(s) Document(s ) Creatinine 0.7 mg/dL [place] [Mass/volume] Hospital in Serum or Plasma ID Date Data Source [id number] 09/08/2019 06:47:00 AM EST [place] [facility] Name Value Range Interpretation Description Data Sup porting Code Source(s) Document(s ) Urea 11 mg/dL [place] nitrogen Hospital [Mass/volume ] in Serum or Plasma ID Date Data Source [id number] 09/08/2019 06:47:00 AM [facility] Name Value Range Interpretation Code Description Data Dorothy rce(s) Supporting Document(s ) Anion gap in 9 [place] Serum or Hospital Plasma ID Date Data Source [id number] 09/08/2019 06:47:00 AM [facility] Hospital Name Value Range Interpretation Description Data Sup porting Code Source(s) Document(s ) Carbon 28 mmol/L [place] dioxide, Hospital total [Moles/volu me] in Serum or Plasma ID Date Data Source [id number] 09/08/2019 06:47:00 AM EST [place] [facility] Name Value Range Interpretation Description Data Sup porting Code Source(s) Document(s ) Chloride 103 [place] [Moles/volum mmol/L Hospital e] in Serum or Plasma ID Date Data Source [id number] 09/08/2019 06:47:00 AM [facility] Name Value Range Interpretation Description Data Sup porting Code Source(s) Document(s ) Potassium 4.3 [place] [Moles/volume mmol/L Hospital ] in Serum or Plasma ID Date Data Source [id number] 09/08/2019 06:47:00 AM [facility] Name Value Range Interpretation Description Data Sup porting Code Source(s) Document(s ) Sodium 136 mmol/L [place] [Moles/volu Hospital la] in Serum or Plasma ID Date Data Source [id number] 09/08/2019 06:47:00 AM [facility] Name Value Range Interpretation Description Data Sup porting Code Source(s) Document(s ) Glucose 103 mg/dL [place] [Mass/volume Hospital ] in Serum or Plasma ID Date Data Source [id number] 09/07/2019 05:42:00 PM [facility] TEST PERFORMED BY [employer] ULTRA SENSITIVE CENTAUR CHEMILUMINESCENCE METHOD. Name Value Range Interpretation Description Data Sup porting Code Source(s) Document(s ) Troponin < 0.01 [place] I.cardiac ng/mL Hospital [Mass/volume ] in Serum or Plasma ID Date Data Source [id number] 09/07/2019 01:44:00 PM [facility] Name Value Range Interpretation Description Data Sup porting Code Source(s) Document(s ) Aspartate 20 U/L [place] aminotransferase [place] [Enzymatic Hospital activity/volume] in Serum or Plasma ID Date Data Source [id number] 09/07/2019 01:44:00 PM [facility] Name Value Range Interpretation Description Data Sup porting Code Source(s) Document(s ) Alanine 17 U/L [place] aminotransferase [place] [Enzymatic Hospital activity/volume] in Serum or Plasma ID Date Data Source [id number] 09/07/2019 01:44:00 PM [facility] Name Value Range Interpretation Description Data Sup porting Code Source(s) Document(s ) Alkaline 66 U/L [place] phosphatase Hospital [Enzymatic activity/volume ] in Serum or Plasma ID Date Data Source [id number] 09/07/2019 01:44:00 PM EST [facility] Name Value Range Interpretation Description Data Sup porting Code Source(s) Document(s ) Bilirubin.d < 0.1 [place] irect mg/dL Hospital [Mass/volum e] in Serum or Plasma ID Date Data Source [id number] 09/07/2019 01:44:00 PM EST [facility] Name Value Range Interpretation Description Data Sup porting Code Source(s) Document(s ) Bilirubin.t 0.2 mg/dL [facility] [Mass/volum e] in Serum or Plasma ID Date Data Source [id number] 09/07/2019 01:44:00 PM [facility] Name Value Range Interpretation Code Description Data Dorothy rce(s) Supporting Document(s ) Albumin/Glob 1.7 [place] ulin [Mass Hospital Ratio] in Serum or Plasma ID Date Data Source [id number] 09/07/2019 01:44:00 PM [facility] Name Value Range Interpretation Description Data Sup porting Code Source(s) Document(s ) Albumin 3.7 g/dL [place] [Mass/volume Hospital ] in Serum or Plasma ID Date Data Source [id number] 09/07/2019 01:44:00 PM EST [place] [facility] Name Value Range Interpretation Description Data Sup porting Code Source(s) Document(s ) Protein 5.9 g/dL [place] [Mass/volume Hospital ] in Serum or Plasma ID Date Data Source [id number] 09/07/2019 01:44:00 PM EST [facility] Name Value Range Interpretation Description Data Sup porting Code Source(s) Document(s ) URINE 1+ [place] EPITHELIAL [facility] CELLS ID Date Data Source [id number] 09/07/2019 01:44:00 PM EST [place] [facility] Name Value Range Interpretation Description Data Sup porting Code Source(s) Document(s ) Erythrocytes 20-40 [place] [#/area] in /[HPF] Hospital Urine sediment by Automated count ID Date Data Source [id number] 09/07/2019 01:44:00 PM EST [facility] Name Value Range Interpretation Description Data Sup porting Code Source(s) Document(s ) Leukocytes 0-3 [place] [#/area] in /[HPF] Hospital Urine sediment by Automated count ID Date Data Source [id number] 09/07/2019 01:44:00 PM EST [facility] Name Value Range Interpretation Description Data Sup porting Code Source(s) Document(s ) Leukocyte NEGATIVE [place] esterase Hospital [Presence] in Urine by Test strip ID Date Data Source [id number] 09/07/2019 01:44:00 PM EST [facility] Name Value Range Interpretation Description Data Sup porting Code Source(s) Document(s ) URINE NEGATIVE [place] NITRITES Hospital ID Date Data Source [id number] 09/07/2019 01:44:00 PM EST [facility] Name Value Range Interpretation Description Data Sup porting Code Source(s) Document(s ) Erythrocytes 3+ [place] [#/volume] in Hospital Urine by Test strip ID Date Data Source [id number] 09/07/2019 01:44:00 PM EST [facility] Name Value Range Interpretation Code Description Data Dorothy rce(s) Supporting Document(s ) Bilirubin. NEGATIVE [place] total Hospital [Presence] in Urine by Test strip ID Date Data Source [id number] 09/07/2019 01:44:00 PM EST [facility] Name Value Range Interpretation Description Data Sup porting Code Source(s) Document(s ) Urobilinogen 0.2 [place] [Units/volume] mg/dL Hospital in Urine by Test strip ID Date Data Source [id number] 09/07/2019 01:44:00 PM EST [facility] Name Value Range Interpretation Description Data Sup porting Code Source(s) Document(s ) Ketones NEGATIVE [place] [Mass/volume Hospital ] in Urine by Test strip ID Date Data Source [id number] 09/07/2019 01:44:00 PM EST [facility] Name Value Range Interpretation Description Data Sup porting Code Source(s) Document(s ) Glucose NEGATIVE [place] [Mass/volume Hospital ] in Urine by Test strip ID Date Data Source [id number] 09/07/2019 01:44:00 PM EST [facility] Value Range Interpretation Code Description Data Dorothy rce(s) Supporting Document(s ) Protein 2+ [place] [Presence] Hospital in Urine by Test strip ID Date Data Source [id number] 09/07/2019 01:44:00 PM EST [facility] Name Value Range Interpretation Code Description Data Dorothy rce(s) Supporting Document(s ) pH of Urine 7.0 [place] by Test Hospital strip ID Date Data Source [id number] 09/07/2019 01:44:00 PM EST [facility] Value Range Interpretation Code Description Data Supporting Source(s) Document(s ) Specific 1.013 [place] gravity of Hospital Urine by Test strip ID Date Data Source [id number] 09/07/2019 01:44:00 PM EST [place] [facility] Name Value Range Interpretation Description Data Sup porting Code Source(s) Document(s ) Clarity in Urine CLEAR [place] by Refractometry Hospital automated ID Date Data Source [id number] 09/07/2019 01:44:00 PM EST [facility] Name Value Range Interpretation Code Description Data Dorothy rce(s) Supporting Document(s ) Color of YELLOW [place] Urine Hospital ID Date Data Source [id number] 09/07/2019 01:44:00 PM [facility] THERAPEUTIC RANGES:UNFRACTIONATED HEPARI N THERAPY: 60-90 SECONDSARGATROBAN THERAPY: 49-99 SECONDS Name Value Range Interpretation Description Data Sup porting Code Source(s) Document(s ) aPTT in 30.5 s [place] Platelet poor [facility] plasma by Coagulation assay ID Date Data Source [id number] 09/07/2019 01:44:00 PM [facility] THERAPEUTIC RANGE FOR STANDARD ORALANTIC OAGULANT THERAPY: 2.0-3.0THERAPEUTIC RANGE FOR HIGH DOSE ORALANTICOAGULANT THERAPY (MECHANICAL HEARTVALVE REPLACEMENT): 2.5-3.5 Name Value Range Interpretation Description Data Sup porting Code Source(s) Document(s ) INR in Platelet 1.0 [place] poor plasma by Hospital Coagulation assay ID Date Data Source [id number] 09/07/2019 01:44:00 PM [facility] Name Value Range Interpretation Description Data Sup porting Code Source(s) Document(s ) PT panel - 11.7 s [place] Platelet poor [facility] plasma by Coagulation assay ID Date Data Source [id number] 09/07/2019 01:44:00 PM [facility] Name Value Range Interpretation Description Data Sup porting Code Source(s) Document(s ) Platelet mean 9.0 fL [place] volume Hospital [Entitic volume] in Blood by Automated count ID Date Data Source [id number] 09/07/2019 01:44:00 PM [facility] Name Value Range Interpretation Description Data Sup porting Code Source(s) Document(s ) Platelets 310 [place] [#/volume] in 10*3/uL Hospital Blood by Automated count ID Date Data Source [id number] 09/07/2019 01:44:00 PM [facility] Name Value Range Interpretation Description Data Sup porting Code Source(s) Document(s ) Erythrocyte 16.2 % [facility] Hospital width [Ratio] by Automated count ID Date Data Source [id number] 09/07/2019 01:44:[address] [facility] Value Range Interpretation Description Data Sup porting Code Source(s) Document(s ) Erythrocyte mean 34.0 [place] corpuscular g/dL Hospital hemoglobin concentration [Mass/volume] by Automated count ID Date Data Source [id number] 09/07/2019 01:44:[address] [facility] Value Range Interpretation Description Data Sup porting Code Source(s) Document(s ) Erythrocyte 27.6 pg [facility] corpuscular hemoglobin [Entitic mass] by Automated count ID Date Data Source [id number] 09/07/2019 01:44:[address] [facility] Value Range Interpretation Description Data Sup porting Code Source(s) Document(s ) Erythrocyte 81.2 fL [facility] corpuscular volume [Entitic volume] by Automated count ID Date Data Source [id number] 09/07/2019 01:44:[address] [facility] Value Range Interpretation Description Data Sup porting Code Source(s) Document(s ) Hematocrit 36.8 % [place] [Volume Hospital Fraction] of Blood by Automated count ID Date Data Source [id number] 09/07/2019 01:44:[address] [facility] Value Range Interpretation Description Data Sup porting Code Source(s) Document(s ) Hemoglobin 12.5 g/dL [place] [Mass/volume] Hospital in Blood ID Date Data Source [id number] 09/07/2019 01:44:00 PM EST [facility] Name Value Range Interpretation Description Data Sup porting Code Source(s) Document(s ) Erythrocytes 4.53 [place] [#/volume] in 10*6/uL Hospital Blood by Automated count ID Date Data Source [id number] 09/07/2019 01:44:00 PM EST [facility] Name Value Range Interpretation Description Data Sup porting Code Source(s) Document(s ) Leukocytes 10.0 [place] [#/volume] in 10*3/uL Hospital Blood by Automated count ID Date Data Source [id number] 09/07/2019 01:22:00 PM [facility] Diploma Medical Assistant:FILIBERTO MCGEE Name Value Range Interpretation Description Data Sup porting Code Source(s) Document(s ) Glucose 89 mg/dL [place] [Mass/volume] [facility] in Capillary blood by Glucometer Procedure Social History Code Duration Value Status Description Data Source(s ) Smoking 09/08/2019 Smokes tobacco completed Smokes tobacco [place] 10:41:00 AM EST daily (finding) daily (finding) Hospital Vital Signs ID Date Data Source UNK Name Value Range Interpretation Code Description Data Source(s) Diastolic blood 75 mm[Hg] 75 mm[Hg] [place] [facility] pressure [facility] Systolic blood 150 mm[Hg] 150 mm[facility]Hg[facility] Respiratory rate 20 /min 20 /min [facility] Heart rate 68 /min 68 /min [facility] Body temperature 36.41272 Qian 36.03060 Qian [facility] Body temperature 98.0 [degF] 98.0 [degF] [facility] Body mass index 35.4 kg/m2 35.4 kg/m2 [facility] ins (BMI) [Ratio] Hospital Body weight 200 [lb_av] 200 [lb_av] [facility]
== END 2020-04-21 17:18 | disposition home or self-care (01) ==
LOC: JERFT 16:16
DX: M54.5 Low back pain (principal)
CPT/HCPCS: 99283-25

== ENCOUNTER 2023-11-25 11:03 | Emergency (ER) | payer OTHER ==
[2023-11-25 11:10] VITALS: BP 140/71; PULSE 78; RESP 18; TEMP 97.6; BMI 36.3
[2023-11-25] MEDS ORDERED: IBUPROFEN 400 MG TABLET (FP) PO ONE (11:45)
[2023-11-25] MEDS: IBUPROFEN 400 MG TABLET (FP) PO ONE (11:45)
== END 2023-11-25 12:45 | disposition home or self-care (01) ==
LOC: JERFT 11:03
DX: S83.92XA Sprain of unspecified site of left knee, initial encounter (principal); M25.562 Pain in left knee; X50.1XXA Overexertion from prolonged static or awkward postures, initial encounter
CPT/HCPCS: 73562-TC-LT-FY; 99283-25

== ENCOUNTER 2024-09-07 07:12 | Emergency (ER) | payer OTHER ==
[2024-09-07 07:19] VITALS: BP 127/61; PULSE 71; RESP 16; TEMP 98.6; BMI 36.5
[2024-09-07] MEDS ORDERED: CycloBENZAprine HCL 10 MG TABLET (FP) ONE (07:47)
[2024-09-07] MEDS ORDERED: LIDOCAINE 4% PATCH TP ONE (07:47)
[2024-09-07] MEDS ORDERED: KETOROLAC TROMETHAMINE 30 MG/1 ML VIAL ONE (07:48)
[2024-09-07] MEDS ORDERED: ACETAMINOPHEN 500 MG TABLET (FP) ONE (07:48)
[2024-09-07] MEDS: ACETAMINOPHEN 500 MG TABLET (FP) PO ONE (07:56)
[2024-09-07] MEDS: LIDOCAINE 4% PATCH TP ONE (07:56)
[2024-09-07] MEDS: KETOROLAC TROMETHAMINE 30 MG/1 ML VIAL IM ONE (07:56)
[2024-09-07] MEDS: CycloBENZAprine HCL 10 MG TABLET (FP) PO ONE (07:57)
[2024-09-07] MEDS ORDERED: LIDOCAINE PATCH REMOVAL MC ONE (20:00)
== END 2024-09-07 08:03 | disposition home or self-care (01) ==
LOC: JER 07:12 → JERFT 07:12
PROC: 3E0233Z Introduction of Anti-inflammatory into Muscle, Percutaneous Approach (ICD-10-PCS; principal; 2024-09-07)
DX: S39.012A Strain of muscle, fascia and tendon of lower back, initial encounter (principal); M25.561 Pain in right knee; M25.562 Pain in left knee; W01.0XXA Fall on same level from slipping, tripping and stumbling without subsequent striking against object, initial encounter
CPT/HCPCS: 96372; 99284-25

== ENCOUNTER 2025-01-12 01:14 | Emergency (ER) | payer OTHER ==
[2025-01-12 01:40] VITALS: BP 128/70; PULSE 68; RESP 18; TEMP 98.2; BMI 35.4
[2025-01-12] MEDS ORDERED: ACETAMINOPHEN 325 MG TABLET (FP) ONE (02:09)
[2025-01-12] MEDS ORDERED: KETOROLAC TROMETHAMINE 30 MG/1 ML VIAL ONE (02:09)
[2025-01-12] MEDS ORDERED: LIDOCAINE 5% TOPICAL PATCH ONE (02:09)
[2025-01-12] MEDS: LIDOCAINE 5% TOPICAL PATCH TP ONE (02:16)
[2025-01-12] MEDS: ACETAMINOPHEN 500 MG TABLET (FP) PO ONE (02:17)
[2025-01-12] MEDS: KETOROLAC TROMETHAMINE 30 MG/1 ML VIAL IM ONE (02:17)
[2025-01-12] MEDS ORDERED: LIDOCAINE PATCH REMOVAL MC SCH (22:00)
== END 2025-01-12 02:38 | disposition home or self-care (01) ==
LOC: JER 01:14
PROC: 3E0233Z Introduction of Anti-inflammatory into Muscle, Percutaneous Approach (ICD-10-PCS; principal; 2025-01-12)
DX: M54.50 Low back pain, unspecified (principal); G89.29 Other chronic pain; H92.01 Otalgia, right ear; M79.671 Pain in right foot; M79.672 Pain in left foot
CPT/HCPCS: 99284-25